=== PATIENT | female | born 2000 | race Caucasian/White ===

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

== ENCOUNTER 2024-01-30 16:41 | Emergency (ER) | payer MEDICAID ==
[~2024-01-30] VITALS: Ht 175.3 cm; Wt 92.2 kg
[~2024-01-30 16:41] MED LIST changes: +HYDR28CR14 TOP
[2024-01-30] MEDS ORDERED: AMOX-580 PO (17:08)
[2024-01-30] MEDS: CefTRIAXone 1000mg IM Kit (w/lidocaine diluent) IM ONE (17:08)
[2024-01-30] MEDS: ketorolac trometh 30MG/ML vial 30 MG/ML VIAL IM ONE (17:08)
[2024-01-30] MEDS ORDERED: HYDR-3965 PO (17:08)
[2024-01-30] MEDS: HYDROcodone/acetaminophen 5mg/325mg tablet PO ONE (17:08)
[2024-01-30] MEDS: ondansetron 4mg rapidly disintigrating tab PO ONE (17:08)
[2024-01-30 17:20] VITALS: BP 132/68; PULSE 80; RESP 18; TEMP 98.9; O2SAT 97
== END 2024-01-30 17:23 | disposition home or self-care (01) ==
LOC: ER 16:42
DX: K08.89 Other specified disorders of teeth and supporting structures (principal); K04.7 Periapical abscess without sinus; Z79.899 Other long term (current) drug therapy
CPT/HCPCS: 96372; 99284; J0696; J1885